=== PATIENT | female | born 1955 | race Caucasian/White ===

== ENCOUNTER → 2024-06-03 10:47 | Outpatient (REF) | payer MEDICARE, OTHER, SELFPAY | LOC: HWRAD 10:47 | PROVIDERS: ATTENDING PHYSICIAN Family Medicine | DX: N95.1 Menopausal and female climacteric states (principal); Z12.31 Encounter for screening mammogram for malignant neoplasm of breast; Z78.0 Asymptomatic menopausal state | CPT/HCPCS: 77063; 77067; 77080 ==